=== PATIENT | female | born 1950 | race American Indian/Alaskan Native ===

== ENCOUNTER 2020-07-22 19:41 | Emergency (ER) | payer SELFPAY ==
--- NOTE | 2020-07-22 20:02 | Emergency Department Report ---
ED CPR HPI - General Chief Complaint: Cardiac Arrest/CPR Stated Complaint: POST CARDIAC ARREST Time Seen by Provider: 07/22/20 19:56 Source: EMS - History of Present Illness Initial Comments: Patient is a 69-year-old female with history of hepatitis C and cirrhosis of the liver. Patient presents to the emergency department in cardiac arrest. Per EMS they received a call around six fifty-two. The patient has previously been seen approximately 30 minutes before that. Patient was initially in PEA arrest. They continue to work patient give epi and placed a Hemant airway. They briefly had ROSC and transported patient to the emergency department however on the way to transport patient lost pulses again. - Related Data Home Medications Medication Instructions Recorded Confirmed Last Taken No Known Home Medications [No 05/12/15 05/12/15 Unknown Reported Home Medications] Allergies Allergy/AdvReac Type Severity Reaction Status Date / Time No Known Allergies Allergy Verified 05/12/15 02:44 ED Review of Systems ROS: Stated complaint: POST CARDIAC ARREST Other details as noted in HPI Comment: Unobtainable due to pts medical conditions ED Past Medical Hx - Past Medical History Hx Liver Disease: Yes - Surgical History Additional Surgical History: HYSTERECTOMY - Social History Smoking Status: Unknown if ever smoked - Medications Home Medications: Home Medications Medication Instructions Recorded Confirmed Last Taken Type No Known Home Medications [No 05/12/15 05/12/15 Unknown History Reported Home Medications] ED Physical Exam - General General appearance: other (Unresponsive) - Head Head exam: Present: atraumatic, normocephalic - Eye Eye exam: Present: other (Pupils are fixed and dilated) - ENT ENT exam: Present: other (Hemant airway in place) - Respiratory Respiratory exam: Present: other (Patient has lung sounds being bagged through Hemant airway. There is no chest rise without being bagged) - Cardiovascular Cardiovascular Exam: Present: other (There is no pulse.) - GI/Abdominal GI/Abdominal exam: Present: distended, other (Positive for fluid wave) - Rectal Rectal exam: Present: deferred - Extremities Exam Extremities exam: Present: pedal edema, other (I/O in place on the left tib-fib) - Neurological Exam Neurological exam: Present: other (Unresponsive with fixed and dilated pupils) - Psychiatric Psychiatric exam: Present: other (Unable to assess) - Skin Skin exam: Present: dry, intact ED Medical Decision Making - Medical Decision Making Patient is a 69-year-old female with history of hepatitis C, ascites who presents to the emergency department in cardiac arrest. Patient had not been seen for approximately 30 minutes when at 1850 EMS received a phone call for an unresponsive person. When they arrived the patient did not have pulses. Patient was in PEA arrest. ACLS was started. Patient received four doses of epi via IO. Hemant airway was placed. Patient was being bagged and compressions were in progress when the patient arrived to the emergency department. Her initial rhythm in the emergency department was PEA. We continued ACLS and patient was bagged via Hemant airway. Unfortunately patient's rhythm developed into asystole, time of was called at 7:50 PM. Critical care attestation.: If time is entered above; I have spent that time in minutes in the direct care of this critically ill patient, excluding procedure time. ED Disposition Clinical Impression: Cardiac arrest Disposition: [id number] Is pt being admited?: No Does the pt Need Aspirin: No
== END 2020-07-22 21:30 ==
LOC: ED 19:41
DX: I46.9 Cardiac arrest, cause unspecified (principal); Z90.710 Acquired absence of both cervix and uterus
CPT/HCPCS: 92950